=== PATIENT | female | born 1945 | race African-American/Black ===

== ENCOUNTER 2021-01-23 02:02 | Emergency (ER) | payer MEDICARE, OTHER ==
[~2021-01-23] VITALS: Ht 160 cm; Wt 75.0 kg
[2021-01-23 04:24] VITALS: BP 138/76
== END 2021-01-23 04:25 | disposition home or self-care (01) ==
LOC: ER 02:46
DX: T46.1X1A Poisoning by calcium-channel blockers, accidental (unintentional), initial encounter (principal); R53.1 Weakness; R42 Dizziness and giddiness; Y92.018 Other place in single-family (private) house as the place of occurrence of the external cause; Z86.73 Personal history of transient ischemic attack (TIA), and cerebral infarction without residual deficits; I10 Essential (primary) hypertension
CPT/HCPCS: 93005; 99283

== ENCOUNTER 2021-09-09 02:07 | Emergency (ER) | payer MEDICARE, OTHER ==
[~2021-09-09] VITALS: Ht 154.9 cm; Wt 62.0 kg
[2021-09-09 03:04] LABS: BASOPHILS % 0.4 % (0.0-2.0); EOSINOPHILS % 3.9 % (0.0-5.0); HEMATOCRIT. 38.1 % (36.0-48.0); HEMOGLOBIN. 12.5 g/dL (12.0-16.0); MEAN CORPUSCULAR HEMOGLOBIN 27.2 pg (28.0-32.0); MEAN CORPUSCULAR VOLUME 82.7 fL (81.0-99.0); MEAN PLATELET VOLUME 7.1 fl (7.4-10.4); MONOCYTES % 7.7 % (2.0-8.0); PLATELET 302 x1000/uL (130-400); RED CELL DISTRIBUTION WIDTH 15.6 % (11.6-14.6)
[2021-09-09 03:09] LABS: CHLORIDE 111 mEq/L (98-107)
[2021-09-09] MEDS ORDERED: SODIUM CHLORIDE 0.9% 1,000 ML IV ONE (04:00)
[2021-09-09] MEDS ORDERED: IOHEXOL-350 100 ML BOTTLE ONE (12:09)
[2021-09-09 12:24] VITALS: BP 125/66
== END 2021-09-09 13:57 | disposition home or self-care (01) ==
LOC: ER 02:07
DX: R00.2 Palpitations (principal); R42 Dizziness and giddiness; I70.0 Atherosclerosis of aorta; R79.1 Abnormal coagulation profile; J98.11 Atelectasis; N28.1 Cyst of kidney, acquired; R94.31 Abnormal electrocardiogram [ECG] [EKG]
CPT/HCPCS: 36415; 71045; 71275; 80053; 83880; 84484; 85025; 85379; 93005; 99285; Q9967

== ENCOUNTER 2021-10-07 15:51 | Emergency (ER) | payer MEDICARE, OTHER ==
[~2021-10-07] VITALS: Ht 152.4 cm; Wt 53.0 kg
[2021-10-07] MEDS ORDERED: KETOROLAC 15MG/ML VIAL IM ONE (16:45)
[2021-10-07] MEDS ORDERED: LIDOCAINE 5% PATCH TOP SCH (16:45)
[2021-10-07] MEDS ORDERED: ACETAMINOPHEN 325MG TABLET PO ONE (18:45)
[2021-10-07 20:00] VITALS: BP 121/79
== END 2021-10-07 20:05 | disposition home or self-care (01) ==
LOC: ER 15:51
DX: M54.59 Other low back pain (principal); I10 Essential (primary) hypertension; E78.00 Pure hypercholesterolemia, unspecified; Z86.73 Personal history of transient ischemic attack (TIA), and cerebral infarction without residual deficits
CPT/HCPCS: 72100; 99283